=== PATIENT | female | born 1970 | race African-American/Black ===

== ENCOUNTER → 2016-12-23 | Outpatient (CLI) | payer OTHER ==
[~2016-12-23] MED LIST: ALBUTEROL17 GM INH; ALLEGRA; AMOXICILLIN500 M1 PO; ANTIVERT PO; ASPIRIN ENTERI325 M1 PO; ATIVAN PO; BACTRIM DS TABL1 TA1 PO; CERTAGEN PO; CIPRO PO; CIPRO250 M1 PO; DICYCLOMINE HCL20 MG PO; FLAGYL250 MG PO; FLEXERIL PO; FLEXERIL10 M1 PO; FLEXERIL10 MG PO; FLONASE 0.05% N16 G1; HYDROMET SYRUP480 ML PO; IBUPROFEN PO; IBUPROFEN800 MG PO; KETOPROFEN PO; LEVAQUIN PO; LORTAB 7.5-5001 TAB PO; MEDROL DOSEPAK4 MG DOB; MEDROL PO; NAPROSYN500 MG PO; NAPROXEN; NO MEDICATIONS; PEPCID AC20 MG PO; PERCOCET5/325 PO; PHENERGAN25 M1 PO; PREDNISONE; PRILOSEC PO; REFLUX MED PO; SENNA S TABLET1 TAB PO; VALTREX PO; VICODIN 5/1 TAB 5/50 PO; VOLTAREN75 MG PO; ZYRTEC D PO; ZYRTEC10 M2
--- NOTE | ~2016-12-23 | CT2 ---
[facility] A Service of [facility] & [facility] RADIOLOGY TEXT RESULTS PATIENT: LUIS CAMPOS LOCATION: [facility] : 70 UNIT #: [id number] AGE: [address]: Bertin Blanton MD SEX: F ORDER DR: [id number] [facility]. [place], [place] [address] [id number] O MR#: [id number] Acc #: [id number] NAME: LUIS CAMPOS. : 1970 SEX: F STUDY DATE/TIME: 12/23/2016 9:41 UNIT: [facility] ROOM: STUDY DESCRIPTION: CT Abd and Pelv W Cont Attending Physician: Bertin Blanotn M.D. Referring Physician: Bertin Blanton M.D. Ordering Physician: Bertin Blanton M.D. Primary Care Physician: Bernardino Quintana MEDICAL IMAGING REPORT This report is preliminary unless electronic signature is present EXAM CT abdomen and pelvis with contrast. INDICATION Left lower quadrant pain for 2 to 3 weeks with nausea. Recent breast augmentation 5 weeks ago. TECHNIQUE Axial 5 mm images were obtained through the abdomen and pelvis with IV and oral contrast. This CT exam was performed with one or more of the following radiation dose reduction techniques: Automatic exposure control, adjustment of mA and/or kV according to patient size, and iterative reconstruction. FINDINGS The patient was given 100 mL of Isovue-370 for the study. There are 3 small cysts in the liver measuring about 12 mm in diameter. They are unchanged from 03/21/15. The gallbladder has been removed. The spleen, pancreas, adrenal glands and kidneys are normal except for a tiny 7 mm cyst in the upper pole of the left kidney. The aorta is normal in size and there is no adenopathy. The bowel appears normal. The bladder is normal. The uterus has been removed. There are no adnexal masses. The bones are unremarkable. IMPRESSION 1. Prior cholecystectomy and hysterectomy. 2. There is incidental note of small hepatic cysts. 3. Otherwise, normal. No cause of the patient's pain is identified. [facility] A Service of [facility] & [facility] RADIOLOGY TEXT RESULTS PATIENT: LUIS CAMPOS LOCATION: [facility] : 70 UNIT #: [id number] AGE: [address]: Bertin Blanton MD SEX: F ORDER DR: Dictated by... Saulo Barnhart M.D. THIS IS AN ELECTRONICALLY VERIFIED REPORT Saulo Barnhart M.D. at 12/23/2016 3:49 PM FEL/bd TD: 12/23/2016 13:35 JOB #: [id number] MEDICAL IMAGING REPORT Page 1 of 1 COPY
[2016-12-23 08:31] LABS: HEMATOCRIT 44.9 % (35.0-45.0); HEMOGLOBIN 14.9 gm/dL (12.0-16.0); MEAN CELL VOLUME 86.7 FL (83-96); MEAN CORPUSCULAR HEMOGLOBIN 28.8 PG (28-34); MEAN CORPUSCULAR HGB CONC 33.2 g/dL (30-36); RED BLOOD COUNT 5.18 X10e (3.90-5.30); RED CELL DISTRIBUTION WIDTH 13.7 % (11.0-15.5); WHITE BLOOD COUNT 6.2 X10e3 (4.0-10.5)
[2016-12-23 09:08] LABS: ALBUMIN SERUM 4.7 g/dL (3.5-5.0); BILIRUBIN,TOTAL 0.5 mg/dL (0.2-2.0); CALCIUM SERUM 9.6 mg/dL (8.4-10.2); CREATININE SERUM 0.8 mg/dL (0.6-1.4); GLOM FILT RATE Estimated 102.6 mL/min (>60); POTASSIUM 3.8 mmol/L (3.5-5.1); PROTEIN TOTAL SERUM 8.2 g/dL (6.0-8.3)
== END | disposition home or self-care (01) ==
LOC: CCAT 07:36
PROVIDERS: Internal Medicine
DX: R10.32 Left lower quadrant pain (principal); Z90.49 Acquired absence of other specified parts of digestive tract; Z90.710 Acquired absence of both cervix and uterus
CPT/HCPCS: 36415; 74177; 80053; 82150; 83690; 85027; Q9967